=== PATIENT | female | born 1985 | race Two or more races ===

== ENCOUNTER 2018-06-28 17:18 | Emergency (ER) | payer OTHER ==
[~2018-06-28] VITALS: Ht 165.1 cm; Wt 74.4 kg
[2018-06-28 17:47] LABS: *URINE HCG, QUAL NEGATIVE (NEGATIVE)
--- NOTE | 2018-06-28 17:51 | NUR ---
PATIENT BROUGHT INTO THE ROOM FOR BACK PAIN RADIATING TO LOWER ABDOMINAL PAIN. PATIENT WAITING TO BE SEEN BY PHYSICIAN.
[2018-06-28 17:52] LABS: *BILIRUBIN,URIN NEGATIVE (NEGATIVE); *BLOOD, URINE NEGATIVE (NEGATIVE); *COLOR,URINE YELLOW (YELLOW); *KETONES,URINE TRACE (NEGATIVE); *PROTEIN,URINE NEGATIVE (NEGATIVE); *UROBILINOGEN,URINE 0.2 E.U./dl (NORMAL); LEUKOCYTE ESTERASE ,URINE TRACE (NEGATIVE); NITRITE, URINE NEGATIVE (NEGATIVE); UGLUCOSE NEGATIVE (NEGATIVE)
[2018-06-28 17:58] LABS: *CLARITY,URINE HAZY (CLEAR)
[2018-06-28 17:59] LABS: BACTERIA,URINE FEW /HPF (NONE SEEN); MUCUS,URINE MANY /LPF (0-FEW); SQUAMOUS EPITHELIAL CELL,UR MODERATE /HPF (NONE SEEN)
[2018-06-28] MEDS ORDERED: HYDROCODONE/APAP 5-325MG TABLET ONE (18:26)
[2018-06-28] MEDS ORDERED: HYDROCODONE/APAP 5-325MG TABLET PO ONE (18:30)
--- NOTE | 2018-06-28 19:04 | NUR ---
PATIENT STILL WAITING TO BE SEEN. PATIENT ANXIOUS, CHANGE OF POSITION FOR COMFORT.
--- NOTE | 2018-06-28 19:14 | NUR ---
REORT GIVEN TO LEA LUGO
[2018-06-28] MEDS ORDERED: IV NORMAL SALINE 1000 ML BAG IV ONE (19:30)
[2018-06-28] MEDS ORDERED: METOCLOPRAMIDE HCL 10 MG/2 ML VIAL IV ONE (19:30)
[2018-06-28] MEDS ORDERED: KETOROLAC TROMETHAMINE 15 MG INJ IV ONE (19:30)
--- NOTE | 2018-06-28 19:30 | NUR ---
DR:ROBBIN AT BEDSIDE AND DISCUSSED WITH PATIENT AND PATIENTS BOYFRIEND AT BEDSIDE PLAN OF CARE .
[2018-06-28] MEDS ORDERED: KETOROLAC TROMETHAMINE 15 MG INJ ONE (19:50)
--- NOTE | 2018-06-28 19:50 | NUR ---
PORTABLE CHEST XRAY DONE BY TECH AT [facility] .
[2018-06-28 19:51] LABS: BASOPHILS # (AUTO) 0.1 K/uL (0.0-8.0); EOSINOPHILS # (AUTO) 0.2 K/uL (0.0-0.7); HEMATOCRIT 42.1 % (31.2-41.9); HEMOGLOBIN 14.5 g/dL (10.9-14.3); LYMPHOCYTES # (AUTO) 2.4 K/uL (20.0-40.0); LYMPHOCYTES % (AUTO) 29.4 % (20.5-51.5); MEAN CORPUSCULAR HEMOGLOBIN 31.3 uug (24.7-32.8); MEAN CORPUSCULAR HGB CONC 34 g/dL (32.3-35.6); MEAN CORPUSCULAR VOLUME 91.2 fL (75.5-95.3); MONOCYTES # (AUTO) 0.7 K/uL (2.0-10.0); MONOCYTES % (AUTO) 8.5 % (0.0-11.0); NEUTROPHILS # (AUTO) 4.9 K/uL (1.8-8.9); NEUTROPHILS % (AUTO) 59.1 % (38.5-71.5); PLATELET COUNT (AUTO) 195 K/uL (179-408); RED BLOOD CELL COUNT(AUTO) 4.62 MIL/uL (3.63-4.92); WHITE BLOOD COUNT (AUTO) 8.3 K/uL (3.8-11.8)
[2018-06-28] MEDS ORDERED: METOCLOPRAMIDE HCL 10 MG/2 ML VIAL ONE (19:51)
[2018-06-28 19:59] LABS: CREATININE 0.7 mg/dL (0.6-1.3); POTASSIUM 4.5 mmol/L (3.5-5.1)
[2018-06-28 20:05] LABS: BILIRUBIN,DIRECT 0.1 mg/dL (0.0-0.2); BILIRUBIN,TOTAL 0.4 mg/dL (0.2-1.0); TOTAL PROTEIN, SERUM 7.8 g/dL (6.4-8.2)
--- NOTE | 2018-06-28 20:15 | NUR ---
ULTRA SOUND PELVIS DONE BY TECH AT BEDSIDE .
--- NOTE | 2018-06-28 21:12 | NUR ---
WENT FOR [facility] [employer] .
--- NOTE | 2018-06-28 22:09 | NUR ---
D/C INSTRUCTION GIVEN AND PATIENT VERBALIZED UNDERSTANDING . V/S WNL . NO SOB . FOLLOW UP WITH MD CAVAZOS AND APOLONIA [facility] .DENEIS PAIN AT THIS TIME . GOING HOME WITH BOYFRIEND .
[2018-06-28 22:19] VITALS: BP 132/57
== END 2018-06-28 22:21 | disposition home or self-care (01) ==
LOC: ER 17:21
DX: R10.31 Right lower quadrant pain (principal); R10.32 Left lower quadrant pain
CPT/HCPCS: 36415; 71045; 76856; 83690; 84703; 85025; 85730; 93005; A4663; J1885; J2765; J7030